=== PATIENT | male | born 1930 | race Caucasian/White ===

== ENCOUNTER 2018-04-07 11:55 | Inpatient (IN) ==
--- NOTE | 2018-04-06 22:52 | Discharge Summary ---
<Lexi Smith E - Last Filed: 04/06/18 22:49> Date of Encounter: 04/06/18 - Discharge Diagnosis (1) Arthritis of right knee Priority: Primary Status: Chronic (2) Status post total right knee replacement Priority: Primary Status: Acute (3) Paroxysmal A-fib Priority: Secondary Status: Chronic (4) CAD (coronary artery disease) Priority: Secondary Status: Chronic Qualifiers: Coronary Disease-Associated Artery/Lesion type: unspecified vessel or lesion type [place] vs. transplanted heart: unspecified whether [place] or transplanted heart Associated angina: angina presence unspecified Qualified Code(s): I25.10 - Atherosclerotic heart disease of [place] coronary artery without angina pectoris (5) Pacemaker Priority: Secondary Status: Chronic (6) BPH (benign prostatic hyperplasia) Priority: Secondary Status: Chronic Qualifiers: Lower urinary tract symptom presence: unspecified whether lower urinary tract symptoms present Qualified Code(s): N40.0 - Benign prostatic hyperplasia without lower urinary tract symptoms - Hospital Course Hospital course: Mr. Jang is a 87 year old male - Time Spent with Patient Total time spent providing and/or coordinating discharge services: - Discharge Medications Home Medications: Aspirin 81 mg PO DAILY 09/11/16 [History] Atorvastatin [Lipitor] 40 mg PO DAILY 09/11/16 [History] Celecoxib [Celebrex] 200 mg PO HS PRN 09/11/16 [History] Finasteride [Proscar] 5 mg PO Q48H 09/11/16 [History] Omeprazole Magnesium [Prilosec Otc] 20 - 40 mg PO HS 09/11/16 [History] Fluticasone Propionate Nasal [Flonase] 100 mcg NS DAILY bottle 09/17/16 [Rx] Melatonin 3 mg PO HS PRN #0 tablet 09/17/16 [Rx] Ibuprofen [Motrin] 600 mg PO Q6HR PRN 7 Days #28 tab 10/27/17 [Rx] Docusate [Colace] 100 mg PO BID PRN 10/28/17 [History] Aspirin Enteric Coated [Aspirin EC] 325 mg PO BID 10 Days #20 tablet. [Rx] OxyCODONE Immed Rel [Roxicodone 5 MG] 5 mg PO Q6HR PRN 7 Days #28 tablet [Rx] Furosemide [Lasix] 40 mg PO DAILY 04/07/18 [History] Tamsulosin [Flomax] 0.4 mg PO DAILY 04/07/18 [History] hydrOXYzine HCl [Hydroxyzine HCl] 25 mg PO BID PRN 04/07/18 [History] Allergies/Adverse Reactions: 3 Allergy/AdvReac Type Severity Reaction Status Date / Time No Known Allergies Allergy Verified 04/07/18 12:48 Primary care physician: Jasvir Acevedo, - Patient Status Disposition: Transfer Inpatient Rehab Fac Condition: Good - Discharge Instructions Follow Up With: Jasvir Acevedo MD [Primary Care Provider] - <Uriel Pichardo - Last Filed: 04/11/18 06:47> Orders not resulted at time of discharge: Pending orders 04/07/18 01:00 XR knee RT limited 1-2V [XR] Routine Hemoglobin and Hematocrit [HEME] Routine 04/07/18 12:31 US anesthesia pain block [US] Routine Date of Encounter: 04/11/18 Time of Encounter: 06:46 - Discharge Diagnosis (1) Obesity (BMI 30.0-34.9) Priority: Secondary Status: Chronic (2) CAD (coronary artery disease) Priority: Secondary Status: Chronic Qualifiers: Coronary Disease-Associated Artery/Lesion type: [place] artery [place] vs. transplanted heart: [place] heart Associated angina: angina presence unspecified Qualified Code(s): I25.10 - Atherosclerotic heart disease of [place] coronary artery without angina pectoris (3) BPH (benign prostatic hyperplasia) Priority: Secondary Status: Chronic Qualifiers: Lower urinary tract symptom presence: presence of symptoms unspecified (4) Hyperlipidemia Priority: Secondary Status: Chronic Qualifiers: Hyperlipidemia type: unspecified Qualified Code(s): E78.5 - Hyperlipidemia , unspecified (5) DVT prophylaxis Priority: Secondary Status: Chronic (6) Arthritis of right knee Priority: Primary Status: Chronic (7) Status post total right knee replacement Priority: Primary Status: Acute (8) Paroxysmal A-fib Priority: Secondary Status: Chronic (9) Pacemaker Priority: Secondary Status: Chronic - Hospital Course Hospital course: Mr. Jang is a 87 year old male Status post right total knee replacement The patient had an uneventful postoperative course. They received antibiotics and physical therapy and were discharged in stable condition. There will follow -up in the office in 2 weeks. - Time Spent with Patient Total time spent providing and/or coordinating discharge services: Primary care physician: Jasvir Acevedo, - Patient Status Functional capacity at discharge: uses cane/walker Overall status at discharge: patient is progressing back to baseline
--- NOTE | 2018-04-07 12:18 | Anesthesia Evaluation PreOp ---
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 Other Medical History: GERD Anesthesia History: No Prior Anesthetic Complications, Past Anesthesia (ACDF, shoulder scope) Alcohol Use: none Drug use: none Medications and Allergies Aspirin 81 mg PO DAILY 09/11/16 [History] Atorvastatin [Lipitor] 40 mg PO DAILY 09/11/16 [History] Celecoxib [Celebrex] 200 mg PO HS PRN 09/11/16 [History] Finasteride [Proscar] 5 mg PO Q48H 09/11/16 [History] Omeprazole Magnesium [Prilosec Otc] 20 - 40 mg PO HS 09/11/16 [History] Fluticasone Propionate Nasal [Flonase] 100 mcg NS DAILY bottle 09/17/16 [Rx] Melatonin 3 mg PO HS PRN #0 tablet 09/17/16 [Rx] Ibuprofen [Motrin] 600 mg PO Q6HR PRN 7 Days #28 tab 10/27/17 [Rx] Docusate [Colace] 100 mg PO BID PRN 10/28/17 [History] Aspirin Enteric Coated [Aspirin EC] 325 mg PO BID 10 Days #20 tablet. [Rx] OxyCODONE Immed Rel [Roxicodone 5 MG] 5 mg PO Q6HR PRN 7 Days #28 tablet [Rx] Tamsulosin [Flomax] 0.4 mg PO DAILY 04/07/18 [History] 3 Allergy/AdvReac Type Severity Reaction Status Date / Time No Known Allergies Allergy Verified 04/07/18 12:48 - Meds/Allergy Pre-op Review Medications Reviewed: Yes Allergies Reviewed: Yes Beta Blockers on Current Med List: No Anesthesia Results - Labs Laboratory Tests 03/21/18 03/21/18 03/21/18 14:49 14:49 14:49 WBC 8.1 Hgb 13.6 Hct 41.4 Plt Count 234 INR 2.0 Sodium 137 Potassium 4.1 Chloride 104 Carbon Dioxide 26 BUN 19 Creatinine 1.15 10/11/2017 Stress Impression: Pharmacologic stress ECG is negative for ischemia at level of heart rate achieved. Gated EF = 64%. Perfusion imaging was negative for ischemia or infarct. 09/11/2016 Echo Impressions: Normal LV chamber size, wall thickness, and systolic function. LVEF 60-65%. Normal right ventricular structure and function. A device lead was visualized in the right atrium and right ventricle. Mild aortic regurgitation. No evidence of pulmonary hypertension. - Imaging EKG: report reviewed (SINUS RHYTHM WITH FIRST DEGREE AV BLOCK INFERIOR MYOCARDIAL INFARCTION, PROBABLY OLD) Anesthesia Exam O2 Sat Height 1.68 m Height 1.68 m Weight 86.183 kg Weight 86.183 kg O2 Sat by Pulse Oximetry 97 Vital Signs Temp Pulse Resp BP Pulse Ox 97.9 F 80 18 147/76 97 04/07/18 12:16 04/07/18 12:16 04/07/18 12:16 04/07/18 12:16 04/07/18 12:16 NPO (# of Hours): > 8 Hrs Pain Scale: 0 Pain Scale Used: Numeric (1 - 10) - HEENT Pupil (Motor): Pupils equal, EOMI Mallampati: III Teeth: Normal Oral Opening: Greater than 3 - BURNING PLANT OPERATOR LOC: Oriented BURNING PLANT OPERATOR Motor: Normal RUE, Normal LUE, Normal RLE, Normal LLE, Normal Face BURNING PLANT OPERATOR Sensory: Normal: RUE, LUE, RLE, LLE, Face - Cardiac Rhythm: Regular Murmur: None JVD: No Carotid Bruit: No - Pulmonary Breath Sounds: bilateral Clear Respiratory Effort: Symmetrical Anesthesia Assess/Plan ASA Score: 3 Modified Louise Scale for Level of Consciousness: Cooperative, oriented, and tranquil Anesthetic Plan: Regional Autologous Blood: Yes Monitoring Plan: Standard Monitors Recovery Plan: PACU
--- NOTE | 2018-04-07 12:33 | History & Physical Report ---
Date of Encounter: 04/07/18 Time of Encounter: 12:33 24 Hour HP Update - Instructions Instructions: If the History and Physical is less than 30 days old and was completed prior to A.M. admission and or procedure and has NOT been updated on calendar day of procedure please complete this update prior to performing procedure. - Update Patient reports changes in Medical Condition: No Changes in examination, assessment, or condition: No Changes in Medication: No Preop tests/diagnostics Reviewed: Yes Surgery Remains Indicated: Yes Consent for Planned Operative Procedure(s) Verified: Yes - Pre-Operative Checklist Preoperative Checklist Indicated: No Prophylactic Antibiotic Ordered: Yes Is VTE Prophylaxis Indicated?: Yes
[2018-04-07] MEDS ORDERED: *HR* Propofol 200 MG/20 ML VIAL IVP ONE (12:34)
[2018-04-07] MEDS ORDERED: *HR* Midazolam HCl 2 MG/2 ML VIAL ONE (12:34)
[2018-04-07] MEDS ORDERED: *HR* FentaNYL (PF) 100 MCG/2 ML VIAL ONE (12:34)
[2018-04-07] MEDS ORDERED: Lidocaine -MPF 2% 2 ML VIAL ONE (12:43)
[2018-04-07] MEDS ORDERED: *HR* PHENYLEPHRINE 1,000 MCG/10 ML SYRINGE IVP ONE (12:43)
[2018-04-07] MEDS ORDERED: Ethanol\\Acetic Acid\\Na Ace\\Ben 1,000 ML IRRIG.SOLN IR ONE (13:08)
[2018-04-07] MEDS ORDERED: Morphine Sulfate/PF 5mg/10mL Vial ONE (13:10)
[2018-04-07] MEDS: Ringers Solution, Lactated 1,000 ML IVC SCH ×3 (13:12→20:08)
[2018-04-07] MEDS ORDERED: Bupivacaine/Clonidine Syringe 1 EACH SYRINGE ONE (13:15)
[2018-04-07] MEDS ORDERED: Propofol 500 MG/50 ML INFUS..BTL ONE (13:45)
--- NOTE | 2018-04-07 14:04 | Anesthesia Procedures ---
Date of Encounter: 04/07/18 Time of Encounter: 13:33 Procedures: Anesthesia - Epidural/Spinal Patient ID/Chart reviewed: Yes Patient examined: Yes Consent Obtained: Yes Supplemental Oxygen: Nasal Cannula Supplemental Oxygen Rate (L/min): 2 Sedation: Versed (mg): 1 Sedation: Fentanyl (mcg): 50 Site Prep: Aseptic Technique, Sterile prep and drape, 0.5% Chlorhexidine/Alcohol Patient position: right lateral decubitus Local Anesthetic: Lidocaine 1% Amount of Local Anesthetic used: 2 Interspace Used: L3-L4 Blood: No CSF: Yes Paresthesia: No Procedure: vss though out, block per request of surgeon.
--- NOTE | 2018-04-07 14:07 | Anesthesia Procedures ---
Date of Encounter: 04/07/18 Time of Encounter: 13:36 Procedures: Anesthesia - Nerve Block Procedure Date: 04/07/18 Time: 13:36 Surgical Procedure: right knee replacement Checklist: Correct Patient Identifier, Correct procedure, History checked Correct side: Right Blood Thinner: No Monitor Applied: BP, Pulse Oximetry Supplemental Oxygen via Nasal Cannula (L/min): 2 Sedation: Versed (mg): 1 (same sedation used for both procedures, spinal and adductor) Sedation: Fentanyl (mcg): 50 Indication: Post Op Analgesia Block Type: Other (adductor canal) Catheter placed: No Sterile Technique: Yes Ultrasound used: Yes Anatomy identified: Yes Visual spread of Local: Yes Neuro Stimulation: No Blood on Needle Aspiration: No Smooth Injection of Local: Yes Pain with Injection of Local: No Prep: Chlorhexadine Needle: 21 x 100 mm Stimuplex Local: 0.25% Bupivicaine w/Clonidine 20 mcg/cc Volume (cc): 30 Number of Attempts: 1 Complications: None/effective block Vitals: vss, block per request of surgeon.
--- NOTE | 2018-04-07 14:48 | Orthopedic Operative Note ---
Date of procedure: 04/07/18 Pre-op diagnosis: Right knee arthritis Post-op diagnosis: same Procedure: Procedure: Right robotic-assisted Total knee replacement Estimated blood loss: 200 cc Hardware: Metal and polyethylene replacement. [place] Femur: 5 Tibia: 6 TS insert: 9 Patella: 39 Exam Under anesthesia: 17 degree flexion contracture 7 degree varus as calculated by the robot full flexion and no instability Procedural Notes: Grade 4 arthritic changes all 3 compartments Operative procedure: The patient was brought to the operating room and placed on the operating room table. After general anesthesia was administered the operative knee was examined. Findings were noted in the exam under anesthesia. The operative extremity was prepped and draped in sterile surgical fashion. The patient received IV antibiotics prior to skin incision. A standard midline incision was made centered over the patella. The incision was made through the skin and subcutaneous tissue. A medial parapatellar tendon approach was performed. Care was taken to preserve tissue along the medial aspect of the patella. And to protect the patella tendon. The deep MCL was released off the medial tibia. The infra patella fat pad was excised. The patella was everted and cut was made at the level of the insertion of the quadriceps and patella tendon. The patella was sized to a 39 the guide was seated and the lug holes are drilled. Knee was brought into flexion. Patient noted to have grade 4 arthritic changes all 3 compartments. Steinmann pins were placed in the tibia and the femur for the tibial and femoral arrays respectively. Checkpoints were also placed in the tibia and the femur for calculation purposes. The knee including the femur and the tibial registered. Osteophytes, ACL and PCL were excised at this point. Extension and flexion were assessed with a valgus stress components were adjusted on the computer to balance the knee. Femoral cuts were made first with robotic assistance, these included the anterior cut posterior cuts chamfer cuts. Tibial cut was then performed with robotic assistance as well. Bone fragments were removed, as well as the medial and lateral meniscus. The size 5 femoral guide was seated box cut was made lug holes are drilled. The size 6 tibial tray was seated and prepared with the fin cutter. Trial reduction with the 9 TS Karina revealed extension of 2 degree and 5 degree varus full flexion. No varus valgus instability. Trial reduction revealed excellent patella tracking. All trial components were removed all bony surfaces were irrigated. The Tibia was seated followed by the femur, The Karina size 9 was seated and secured patella. Patient had similar findings for motion and stability. The knee was closed by the PA. The knee was then irrigated out with 2 L of pulse irrigation. The extensor mechanism was closed with #2 FiberWire suture and #2 PDS suture. The subcutaneous tissue was then irrigated and closed deep with #1 PDS suture superficially with 0 PDS suture and skin was closed with zip tie The patient was then placed in a sterile dressing and a postoperative brace extubated and transferred to recovery room in stable condition. Anesthesia: spinal Surgeon: Uriel Pichardo Was there an pier master assistant present: No Estimated blood loss (cc): 200 Condition: stable Disposition: PACU
--- NOTE | 2018-04-07 16:03 | Anesthesia Evaluation Post Op ---
Date of Encounter: 04/07/18 Time of Encounter: 16:03 - Vital Signs Vital Signs: Vital Signs/O2 Sat, Most Current Temp Pulse Resp BP Pulse Ox 98.1 F 60 16 128/73 99 04/07/18 15:49 04/07/18 15:49 04/07/18 15:49 04/07/18 15:49 04/07/18 15:49 - Lungs Lungs: Clear Ascult./Percussion - Airway Airway: Non-obstructed - Cardiovascular Regular Rate - Mental Status Mental Status: Alert & Oriented, Answers Appropriately - Pain Pain Scale: 0 Pain Scale used: Numeric (1 - 10) - Nausea Vomiting Nausea Vomiting: Not Present - Hydration Hydration: Ice chips, Has not voided - Discharge PostOp Status: Transfer Patient to floor
--- NOTE | 2018-04-07 16:15 | Physician Discharge Referral ---
Home Health/Hosp Referral Info Transfer to: Home Health Attending Provider: Dr. Uriel Pichardo - Diagnosis (1) Arthritis of right knee Priority: Primary Status: Chronic (2) Status post total right knee replacement Priority: Primary Status: Acute (3) Paroxysmal A-fib Priority: Secondary Status: Chronic (4) CAD (coronary artery disease) Priority: Secondary Status: Chronic (5) Pacemaker Priority: Secondary Status: Chronic (6) BPH (benign prostatic hyperplasia) Priority: Secondary Status: Chronic - Respiratory Orders Smoking Cessation: Smoking cessation has been advised. For more information, call the [place] Tobacco Quit Line at 3-105-ZHRM-NOW. - Dressing/Wound Care Site: Right knee Type of Dressing/Treatments w/Frequency: Opsite placed. Keep dressing intact until first follow up appointment. If greater than 50% saturated, notify office, remove dressing and place appropriate dressing back in place. Leave Zipline and tracey intact. Opsite dressing is water resistant, not water-proof. OK to shower, but do not get dressing wet. - Diet/Nutrition Diet/Nutrition Orders: Regular - Activity Activity Orders: Up ad teo, Ambulate, Chair, Walker Activity: List: Total Knee replacement Precautions x 6 weeks Apply cold therapy wrap 3-6x/day for 20 minutes at a time. Encourage ambulation throughout the day and incentive spirometer 10x/hour. Elevate affected extremity above heart as tolerated. Brace: Wear knee immobilizer at night x 2 weeks. - Services Needed Following services are medically necessary services: Nursing, Home Health Aide, Physical Therapy, Occupational Therapy - Transfer Medications Prescriptions: OxyCODONE Immed Rel [Roxicodone 5 MG] 5 mg PO Q6HR PRN 7 Days #28 tablet PRN Reason: Severe Pain Aspirin Enteric Coated [Aspirin EC] 325 mg PO BID 10 Days #20 tablet.dr Gay Medications: Aspirin 81 mg PO DAILY 09/11/16 [History] Atorvastatin [Lipitor] 40 mg PO DAILY 09/11/16 [History] Celecoxib [Celebrex] 200 mg PO HS PRN 09/11/16 [History] Finasteride [Proscar] 5 mg PO Q48H 09/11/16 [History] Omeprazole Magnesium [Prilosec Otc] 20 - 40 mg PO HS 09/11/16 [History] Fluticasone Propionate Nasal [Flonase] 100 mcg NS DAILY bottle 09/17/16 [Rx] Melatonin 3 mg PO HS PRN #0 tablet 09/17/16 [Rx] Ibuprofen [Motrin] 600 mg PO Q6HR PRN 7 Days #28 tab 10/27/17 [Rx] Docusate [Colace] 100 mg PO BID PRN 10/28/17 [History] Aspirin Enteric Coated [Aspirin EC] 325 mg PO BID 10 Days #20 tablet. [Rx] OxyCODONE Immed Rel [Roxicodone 5 MG] 5 mg PO Q6HR PRN 7 Days #28 tablet [Rx] Furosemide [Lasix] 40 mg PO DAILY 04/07/18 [History] Tamsulosin [Flomax] 0.4 mg PO DAILY 04/07/18 [History] hydrOXYzine HCl [Hydroxyzine HCl] 25 mg PO BID PRN 04/07/18 [History] Allergies/Adverse Reactions: 3 Allergy/AdvReac Type Severity Reaction Status Date / Time No Known Allergies Allergy Verified 04/07/18 12:48 Certification: Further, I certify that my clinical findings support that this patient is homebound (i.e. absences from home require considerable and taxing effort and are for medical reasons or episcopalian services or infrequently or short duration when for other reasons) because: Homebound Reason: Post-surgery restriction and or conditions limit ability to leave home Attestation: My signature below is to certify that this patient is under my care and that I, or nurse practitioner, or a physician marketing operations assistant working with me, has a face-to- face encounter with this patient.
[2018-04-07 16:23] LABS: Hematocrit 37.7 % (37.5-50.1); Hemoglobin 12.6 g/dL (12.9-16.9)
--- NOTE | 2018-04-07 16:24 | Physician Discharge Referral ---
ExtendedCare Referral Info Transfer To: [facility] Provider in Charge: Dr. Uriel Pichardo - Diagnosis (1) Arthritis of right knee Priority: Primary Status: Chronic (2) Status post total right knee replacement Priority: Primary Status: Acute (3) Paroxysmal A-fib Priority: Secondary Status: Chronic (4) CAD (coronary artery disease) Priority: Secondary Status: Chronic (5) Pacemaker Priority: Secondary Status: Chronic (6) BPH (benign prostatic hyperplasia) Priority: Secondary Status: Chronic Expected Duration of Placement: less than 30 days Prognosis: Good Aware of Diagnosis: Patient Aware of Prognosis: Patient - Transfer Medications Prescriptions: OxyCODONE Immed Rel [Roxicodone 5 MG] 5 mg PO Q6HR PRN 7 Days #28 tablet PRN Reason: Severe Pain Aspirin Enteric Coated [Aspirin EC] 325 mg PO BID 10 Days #20 tablet. Home Medications: Aspirin 81 mg PO DAILY 09/11/16 [History] Atorvastatin [Lipitor] 40 mg PO DAILY 09/11/16 [History] Celecoxib [Celebrex] 200 mg PO HS PRN 09/11/16 [History] Finasteride [Proscar] 5 mg PO Q48H 09/11/16 [History] Omeprazole Magnesium [Prilosec Otc] 20 - 40 mg PO HS 09/11/16 [History] Fluticasone Propionate Nasal [Flonase] 100 mcg NS DAILY bottle 09/17/16 [Rx] Melatonin 3 mg PO HS PRN #0 tablet 09/17/16 [Rx] Ibuprofen [Motrin] 600 mg PO Q6HR PRN 7 Days #28 tab 10/27/17 [Rx] Docusate [Colace] 100 mg PO BID PRN 10/28/17 [History] Aspirin Enteric Coated [Aspirin EC] 325 mg PO BID 10 Days #20 tablet. [Rx] OxyCODONE Immed Rel [Roxicodone 5 MG] 5 mg PO Q6HR PRN 7 Days #28 tablet [Rx] Furosemide [Lasix] 40 mg PO DAILY 04/07/18 [History] Tamsulosin [Flomax] 0.4 mg PO DAILY 04/07/18 [History] hydrOXYzine HCl [Hydroxyzine HCl] 25 mg PO BID PRN 04/07/18 [History] Allergies/Adverse Reactions: 3 Allergy/AdvReac Type Severity Reaction Status Date / Time No Known Allergies Allergy Verified 04/07/18 12:48 - Respiratory Orders Smoking Cessation: Smoking cessation has been advised. For more information, call the [place] Tobacco Quit Line at 3-168-NWBP-NOW. - Ancillary Orders May use pressure relief devices daily prn, May go on MARY w/family/respon alliance party w /meds at nurse discretion PRN, May consult with Dentist, Hat Designer, Bottom Sander PRN - Mobility Orders Chair, Ambulate - Rehabiliation Orders Rehab Potential: Good Rehab Orders: Evaluation for Physical Therapy, Evaluation for Occupational Therapy Other: Total Knee replacement Precautions x 6 weeks Apply cold therapy wrap 3-6x/day for 20 minutes at a time. Encourage ambulation throughout the day and incentive spirometer 10x/hour. Elevate affected extremity above heart as tolerated. Brace: Wear knee immobilizer at night x 2 weeks. - Treatments Skin tear care topically daily PRN per policy List/Other: Opsite placed. Keep dressing intact until first follow up appointment. If greater than 50% saturated, notify office, remove dressing and place appropriate dressing back in place. Leave Zipline and tracey intact. Opsite dressing is water resistant, not water-proof. OK to shower, but do not get dressing wet. - Diet Orders Regular CERTIFICATION: I certify that the transfer of the above named patient to an Extended Care Facility is necessary for the continuing treatment of the diagnosis listed. The above information is true and accurate reflection of patient's current condition. Confidential - Redisclosure prohibited without a patient's written consent.
[2018-04-07] MEDS ORDERED: Naloxone 0.4 MG/ML INJ IVP PRN (17:09)
[2018-04-07] MEDS ORDERED: Ondansetron 4 MG/2 ML VIAL IVP PRN (17:09)
[2018-04-07] MEDS ORDERED: Sennosides 8.6 MG TABLET PO PRN (17:09)
[2018-04-07] MEDS ORDERED: traMADol 50 MG TABLET PO PRN (17:09)
[2018-04-07] MEDS ORDERED: hydrOXYzine pamoate 25 MG CAPSULE PO PRN (17:09)
[2018-04-07] MEDS ORDERED: MOM Conc 10 ML UD.LIQ PO PRN (17:09)
[2018-04-07] MEDS: Finasteride 5 MG TABLET PO SCH (17:38)
[2018-04-07] MEDS: Melatonin 3 MG TABLET PO PRN (22:49)
[2018-04-07] MEDS: *HR* OxyCODONE Immed Rel 5 MG TABLET PO PRN (22:56)
[2018-04-08] MEDS: Temazepam 15 MG CAPSULE PO PRN ×2 (00:46→20:23)
[2018-04-08 01:36] LABS: Hematocrit 38.3 % (37.5-50.1); Hemoglobin 12.7 g/dL (12.9-16.9)
[2018-04-08 01:57] LABS: BUN/Creatinine Ratio 18 (6-26); Blood Urea Nitrogen 18 mg/dL (8-23); Calcium 8.7 mg/dL (8.6-10.3); Carbon Dioxide 22 mEq/L (23-29); Chloride 105 mEq/L (98-107); Glucose 129 mg/dL (70-105); Osmolality,Calculated 286 (280-300); Potassium 4.3 mEq/L (3.5-5.1); Sodium 136 mEq/L (136-145); eGFR For African Americans > 60 (> 60); eGFR For Non-African Americans > 60 (> 60)
[2018-04-08] MEDS: *HR* OxyCODONE Immed Rel 5 MG TABLET PO PRN ×3 (06:46→17:15)
--- NOTE | 2018-04-08 07:00 | Orthopedics Progress Note ---
Date of Encounter: 04/08/18 Time of Encounter: 06:58 - Assessment and Plan (1) Obesity (BMI 30.0-34.9) Current Visit: Yes Status: Chronic (2) CAD (coronary artery disease) Current Visit: No Status: Chronic Qualifiers: Coronary Disease-Associated Artery/Lesion type: [place] artery [place] vs. transplanted heart: [place] heart Associated angina: angina presence unspecified Qualified Code(s): I25.10 - Atherosclerotic heart disease of [place] coronary artery without angina pectoris (3) Hyperlipidemia Current Visit: No Status: Chronic Qualifiers: Hyperlipidemia type: unspecified Qualified Code(s): E78.5 - Hyperlipidemia , unspecified (4) DVT prophylaxis Current Visit: No Status: Chronic (5) Arthritis of right knee Current Visit: No Status: Chronic (6) Status post total right knee replacement Current Visit: No Status: Acute (7) Paroxysmal A-fib Current Visit: No Status: Chronic (8) Pacemaker Current Visit: No Status: Chronic Subjective Principal diagnosis: Patient was seen this morning doing well without complaints. Interval history: Patient was seen this morning doing well without complaints. Afebrile vital signs stable. Operative extremity: Neurovascularly intact Dressing clean dry and intact Calves nontender Assessment and plan: Continue with postoperative care Hematocrit 38 patient with multiple medical problems, patient is unsafe to go home, will require ECF facility. Will be converted to inpatient status. Objective Vital signs: Vital Signs Temp Pulse Resp BP Pulse Ox 04/08/18 04:17 100.4 F H 75 16 111/63 95 04/07/18 23:19 99.7 F H 67 16 112/58 96 04/07/18 18:55 97.6 F 82 18 116/67 98 04/07/18 17:09 97.9 F 81 18 121/83 98 04/07/18 16:04 98.1 F 60 16 126/76 100 04/07/18 15:49 98.1 F 60 16 128/73 99 04/07/18 15:39 60 16 118/68 100 04/07/18 15:29 60 16 114/67 100 04/07/18 15:19 97.0 F L 60 16 119/77 99 04/07/18 13:30 63 16 128/77 98 04/07/18 13:25 68 12 145/68 97 04/07/18 13:20 80 14 147/86 99 04/07/18 13:15 80 16 140/85 98 04/07/18 12:41 97.9 F 80 18 147/76 97 04/07/18 12:16 97.9 F 80 18 147/76 97 Intake and Output 04/07/18 04/07/18 04/08/18 15:59 23:59 07:59 Intake Total 960 / 960 100 / 100 Output Total 200 / 200 650 / 650 Balance 760 / 760 -550 / -550 Intake: IV Fluids 960 / 960 100 / 100 Lactated Ringers 1,000 ML @ 25 960 / 960 mls/hr IVC .Q24H [facility] Rx#: [id number] Ancef 2,000 MG In 0.9 % Sodium 100 / 100 Chloride 100 ML @ 200 mls/hr IVPB Q8H [facility] Rx#:[id number] Oral 0 / 0 Output: Urine 0 / 0 Estimated Blood Loss 200 / 200 Straight Cath 650 / 650 Other: Weight 86.183 kg 85.9 kg Patient Weight 04/08/18 23:59 Weight 85.9 kg - Labs CBC & BMP: 04/08/18 01:19 04/08/18 01:19 Labs: Abnormal lab results Hgb 12.7 g/dL (12.9-16.9) L 04/08/18 01:19 Carbon Dioxide 22 mEq/L (23-29) L 04/08/18 01:19 Glucose 129 mg/dL (70-105) H 04/08/18 01:19 - VTE Documentation of Mechanical Device: Venous foot pump, device Consult Discharge Plan - Plan Referrals: Jasvir Acevedo MD [Primary Care Provider] - Prescriptions: Aspirin Enteric Coated [Aspirin EC] 325 mg PO BID 10 Days #20 tablet. OxyCODONPatel Immed Rel [Roxicodone 5 MG] 5 mg PO Q6HR PRN 7 Days #28 tablet PRN Reason: Severe Pain
[2018-04-08] MEDS: Furosemide 40 MG TABLET PO SCH (09:16)
[2018-04-08] MEDS: Aspirin 81 MG TAB.CHEW PO SCH (09:16)
[2018-04-08] MEDS: *HR* Enoxaparin 30 MG/0.3 ML SYRINGE SQ SCH ×2 (09:19→17:15)
[2018-04-08] MEDS: Fluticasone Propionate Nasal 50 MCG/SPRAY BOTTLE NS SCH (12:52)
[2018-04-08] MEDS ORDERED: *HR* Enoxaparin 30 MG/0.3 ML SYRINGE SQ SCH (18:36)
[2018-04-09] MEDS: *HR* OxyCODONE Immed Rel 5 MG TABLET PO PRN ×4 (00:15→21:25)
[2018-04-09 01:56] LABS: Hematocrit 32.8 % (37.5-50.1)
[2018-04-09 01:57] LABS: Hemoglobin 11.1 g/dL (12.9-16.9)
[2018-04-09 02:26] LABS: BUN/Creatinine Ratio 17 (6-26); Blood Urea Nitrogen 20 mg/dL (8-23); Calcium 8.3 mg/dL (8.6-10.3); Carbon Dioxide 25 mEq/L (23-29); Chloride 99 mEq/L (98-107); Glucose 156 mg/dL (70-105); Osmolality,Calculated 280 (280-300); Potassium 3.9 mEq/L (3.5-5.1); Sodium 132 mEq/L (136-145); eGFR For African Americans > 60 (> 60); eGFR For Non-African Americans 60 (> 60)
[2018-04-09] MEDS: *HR* Enoxaparin 30 MG/0.3 ML SYRINGE SQ SCH ×2 (06:01→18:11)
[2018-04-09] MEDS: Furosemide 40 MG TABLET PO SCH (08:23)
[2018-04-09] MEDS: Aspirin 81 MG TAB.CHEW PO SCH (08:23)
[2018-04-09] MEDS: Fluticasone Propionate Nasal 50 MCG/SPRAY BOTTLE NS SCH (08:24)
--- NOTE | 2018-04-09 10:12 | Event Note ---
Date of Encounter: 04/08/18 Time of Encounter: 17:40 PCR- POD#1 status post right total knee robotic 04/07 Dr. Pichardo PCR - Patient seen at bedside. Patient's girlfriend at bedside. Patient states that he is comfortable temperature if door is closed. Noted that patient has 4 blankets on his lower half and room thermostat is set very warm - at appx 80 degrees. Alert and oriented x 3 Labwork and medications reviewed. 04/08: H/H 12.7/38.3 Vital signs reviewed. Patient with low grade fevers noted through the day/night. Pain control: Adequate Participating in PT. All questions and concerns addressed. Educated on use of incentive spirometer, ambulation, and hydration. Discussed IS use with nurse - states that patient has to be prompted with IS as patient is not self-motivated to use. Patient educated on post-operative restrictions and care. Addressed: Will continue to monitor temps and if needed pursue chest xray to verify no infiltrate. Concern for patient's risk of developing respiratory complication. D/C plan: ECF - awaiting placement
[2018-04-09] MEDS: Ringers Solution, Lactated 1,000 ML IVC SCH ×2 (11:29→11:30)
--- NOTE | 2018-04-09 17:20 | Orthopedics Progress Note ---
Date of Encounter: 04/09/18 Time of Encounter: 17:18 Subjective Principal diagnosis: Status post right total knee arthroplasty Interval history: The patient is without complaints except some swallowing difficulties in the past several months. He has a history of cervical fusion a year and a half ago. We have suggested follow-up with ear nose and throat. Afebrile vital signs are stable. Incision is clean dry and intact. Neurovascularly intact with regard to bilateral lower extremities. Fires all upper and lower extremity motor groups. Assessment :stable. Plan mobilize ,continue analgesics, discharge planning. Objective Vital signs: Vital Signs Temp Pulse Resp BP Pulse Ox 04/09/18 15:34 99.6 F 87 18 127/68 96 04/09/18 11:59 99.9 F H 82 18 163/69 95 04/09/18 08:33 96 04/09/18 08:11 98.4 F 80 18 154/75 96 04/08/18 23:33 98.3 F 79 16 130/70 96 04/08/18 20:10 96 04/08/18 18:57 98.7 F 80 15 124/65 94 Intake and Output 04/09/18 04/09/18 04/09/18 07:59 15:59 23:59 Output Total 350 / 350 Balance -350 / -350 Output: Urine 350 / 350 Other: Meal Breakfast Percent of Meal Consumed 100% - Labs CBC & BMP: 04/09/18 00:57 04/09/18 00:57 Labs: Abnormal lab results Hgb 11.1 g/dL (12.9-16.9) L D 04/09/18 00:57 Hct 32.8 % (37.5-50.1) L 04/09/18 00:57 Sodium 132 mEq/L (136-145) L 04/09/18 00:57 Glucose 156 mg/dL (70-105) H 04/09/18 00:57 Calcium 8.3 mg/dL (8.6-10.3) L 04/09/18 00:57 - VTE Documentation of Mechanical Device: Venous foot pump, device Consult Discharge Plan - Plan Referrals: Jasvir Acevedo MD [Primary Care Provider] -
[2018-04-09] MEDS ORDERED: Acetaminophen 325 MG TABLET PO PRN (17:50)
[2018-04-09] MEDS: Finasteride 5 MG TABLET PO SCH (18:11)
[2018-04-10] MEDS: *HR* Enoxaparin 30 MG/0.3 ML SYRINGE SQ SCH ×2 (06:41→16:54)
--- NOTE | 2018-04-10 06:56 | Orthopedics Progress Note ---
Date of Encounter: 04/10/18 Time of Encounter: 06:56 - Assessment and Plan (1) Obesity (BMI 30.0-34.9) Current Visit: Yes Status: Chronic (2) CAD (coronary artery disease) Current Visit: No Status: Chronic Qualifiers: Coronary Disease-Associated Artery/Lesion type: [place] artery [place] vs. transplanted heart: [place] heart Associated angina: angina presence unspecified Qualified Code(s): I25.10 - Atherosclerotic heart disease of [place] coronary artery without angina pectoris (3) Hyperlipidemia Current Visit: No Status: Chronic Qualifiers: Hyperlipidemia type: unspecified Qualified Code(s): E78.5 - Hyperlipidemia , unspecified (4) DVT prophylaxis Current Visit: No Status: Chronic (5) Arthritis of right knee Current Visit: No Status: Chronic (6) Status post total right knee replacement Current Visit: No Status: Acute (7) Paroxysmal A-fib Current Visit: No Status: Chronic (8) Pacemaker Current Visit: No Status: Chronic Subjective Principal diagnosis: Status post right total knee arthroplasty Interval history: Patient was seen this morning complaints of constipation, will receive enema. Afebrile vital signs stable. Operative extremity: Neurovascularly intact Dressing clean dry and intact Calves tender Assessment and plan: Continue with postoperative care Obtain Doppler right lower extremity, evaluate for bowel function possible discharge this afternoon Objective Vital signs: Vital Signs Temp Pulse Resp BP Pulse Ox 04/10/18 01:06 98.4 F 80 16 145/70 97 04/09/18 18:17 99.7 F H 89 15 143/69 96 04/09/18 15:34 99.6 F 87 18 127/68 96 04/09/18 11:59 99.9 F H 82 18 163/69 95 04/09/18 08:33 96 04/09/18 08:11 98.4 F 80 18 154/75 96 Intake and Output 04/09/18 04/09/18 04/10/18 15:59 23:59 07:59 Intake Total 500 / 500 Output Total 350 / 350 450 / 450 650 / 650 Balance -350 / -350 -450 / -450 -150 / -150 Intake: Oral 500 / 500 Output: Urine 350 / 350 450 / 450 650 / 650 Other: Meal Breakfast Dinner Percent of Meal Consumed 100% 60% # Voids 1 # Urine Diapers 1 Weight 86.5 kg Patient Weight 04/10/18 23:59 Weight 86.5 kg - Labs CBC & BMP: 04/09/18 00:57 04/09/18 00:57 Labs: Abnormal lab results Hgb 11.1 g/dL (12.9-16.9) L D 04/09/18 00:57 Hct 32.8 % (37.5-50.1) L 04/09/18 00:57 Sodium 132 mEq/L (136-145) L 04/09/18 00:57 Glucose 156 mg/dL (70-105) H 04/09/18 00:57 Calcium 8.3 mg/dL (8.6-10.3) L 04/09/18 00:57 - VTE Documentation of Mechanical Device: Venous foot pump, device Consult Discharge Plan - Plan Referrals: Jasvir Acevedo MD [Primary Care Provider] -
[2018-04-10] MEDS: Aspirin 81 MG TAB.CHEW PO SCH (09:31)
[2018-04-10] MEDS: Fluticasone Propionate Nasal 50 MCG/SPRAY BOTTLE NS SCH (09:31)
[2018-04-10] MEDS: Furosemide 40 MG TABLET PO SCH (09:31)
[2018-04-10] MEDS ORDERED: Simethicone 80 MG TAB.CHEW PO PRN (12:28)
--- NOTE | 2018-04-10 17:00 | Event Note ---
Date of Encounter: 04/10/18 Time of Encounter: 12:15 PCR- POD#3 status post right total knee robotic 04/07 Dr. Pichardo PCR - Patient seen at bedside. Alert and oriented x 3 Labwork and medications reviewed. 04/08: H/H 12.7/38.3 7: H/H 11.1/32.8 Vital signs reviewed. Patient continues with intermittent low grade fevers. Pain control: Adequate Participating in PT. All questions and concerns addressed. Educated on use of incentive spirometer, ambulation, and hydration. Discussed IS use with nurse - states that patient has to be prompted with IS as patient is not self-motivated to use. Patient educated on post-operative restrictions and care. Addressed: Doppler today negative. Patient with significant gas and bloating - will order KUB and Simethicone. D/C plan: [facility] swing bed tomorrow 04/11
[2018-04-10] MEDS: Melatonin 3 MG TABLET PO PRN (21:47)
[2018-04-11] MEDS: *HR* OxyCODONE/APAP 5/325 TABLET PO PRN ×2 (04:25→10:14)
[2018-04-11] MEDS: *HR* Enoxaparin 30 MG/0.3 ML SYRINGE SQ SCH (06:07)
--- NOTE | 2018-04-11 06:48 | Orthopedics Progress Note ---
Date of Encounter: 04/11/18 Time of Encounter: 06:47 - Assessment and Plan (1) Obesity (BMI 30.0-34.9) Current Visit: Yes Status: Chronic (2) CAD (coronary artery disease) Current Visit: No Status: Chronic Qualifiers: Coronary Disease-Associated Artery/Lesion type: [place] artery [place] vs. transplanted heart: [place] heart Associated angina: angina presence unspecified Qualified Code(s): I25.10 - Atherosclerotic heart disease of [place] coronary artery without angina pectoris (3) Hyperlipidemia Current Visit: No Status: Chronic Qualifiers: Hyperlipidemia type: unspecified Qualified Code(s): E78.5 - Hyperlipidemia , unspecified (4) DVT prophylaxis Current Visit: No Status: Chronic (5) Arthritis of right knee Current Visit: No Status: Chronic (6) Status post total right knee replacement Current Visit: No Status: Acute (7) Paroxysmal A-fib Current Visit: No Status: Chronic (8) Pacemaker Current Visit: No Status: Chronic Subjective Principal diagnosis: Status post right total knee arthroplasty Interval history: Patient was seen this morning less bowel function discomfort passing gas doing better Afebrile vital signs stable. Operative extremity: Neurovascularly intact Dressing clean dry and intact Calves nontender Assessment and plan: Doppler negative plan for discharge today Objective Vital signs: Vital Signs Temp Pulse Resp BP Pulse Ox 04/11/18 06:45 98.7 F 78 18 131/58 97 04/11/18 04:50 98.6 F 78 16 133/65 96 04/11/18 00:26 98.6 F 81 16 129/62 95 04/10/18 21:36 98.4 F 84 15 129/69 94 04/10/18 14:35 98.9 F 79 18 135/62 95 04/10/18 11:16 100.4 F H 91 20 139/69 95 04/10/18 06:57 99.3 F 95 18 136/70 96 Intake and Output 04/10/18 04/10/18 04/11/18 15:59 23:59 07:59 Intake Total 480 / 480 Output Total 450 / 450 350 / 350 150 / 150 Balance 30 / 30 -350 / -350 -150 / -150 Intake: Oral 480 / 480 Output: Urine 450 / 450 350 / 350 150 / 150 Other: Meal Lunch Percent of Meal Consumed 50% Stool Size Small Stool Consistency soft Stool Characteristics Normal for Patient Stool Color Brown # Voids 1 # Bowel Movements 1 Weight 87 kg Patient Weight 04/11/18 23:59 Weight 87 kg - Labs CBC & BMP: 04/09/18 00:57 04/09/18 00:57 Labs: Abnormal lab results Hgb 11.1 g/dL (12.9-16.9) L D 04/09/18 00:57 Hct 32.8 % (37.5-50.1) L 04/09/18 00:57 Sodium 132 mEq/L (136-145) L 04/09/18 00:57 Glucose 156 mg/dL (70-105) H 04/09/18 00:57 Calcium 8.3 mg/dL (8.6-10.3) L 04/09/18 00:57 - VTE Documentation of Mechanical Device: Venous foot pump, device Consult Discharge Plan - Plan Referrals: Jasvir Acevedo MD [Primary Care Provider] -
[2018-04-11] MEDS: Fluticasone Propionate Nasal 50 MCG/SPRAY BOTTLE NS SCH (08:46)
[2018-04-11] MEDS: Furosemide 40 MG TABLET PO SCH (08:46)
[2018-04-11] MEDS: Aspirin 81 MG TAB.CHEW PO SCH (08:46)
[2018-04-11 10:58] VITALS: BP 142/68
--- NOTE | 2018-04-11 17:13 | Event Note ---
Date of Encounter: 04/11/18 Time of Encounter: 13:20 PCR- POD#4 status post right total knee robotic 04/07 Dr. Pichardo PCR - Patient seen at bedside. Alert and oriented x 3 Labwork and medications reviewed. 04/08: H/H 12.7/38.3 04/09: H/H 11.1/32.8 Vital signs reviewed. No low grade fevers for appx 24 hours. Pain control: Adequate Participating in PT. All questions and concerns addressed. Educated on use of incentive spirometer, ambulation, and hydration. Patient educated on post-operative restrictions and care. Addressed: Patient with decreased pain and improved bowel movement as well as decreased abd tenderness. Patient passing gas and stool without difficulty. D/C plan: [facility] swing bed today 04/11
== END 2018-04-11 16:20 | DRG 470 ==
LOC: SAMDAY 11:55 → 3NENU 17:06
PROVIDERS: ADMIT Orthopaedic Surgery; ATTEND Orthopaedic Surgery